=== PATIENT | female | born 1960 | race Caucasian/White ===

== ENCOUNTER 2024-08-28 12:11 | Emergency (ER) | payer OTHER, SELFPAY ==
[2024-08-28 12:17] VITALS: BP 168/85
[2024-08-28 12:42] LABS: % Basophils 0.4 % (0-2); % Eosinophils 3.1 % (0-6); % Immature Granulocytes 1.3 % (0-0.5); % Lymphocytes 16.5 % (20.5-51.1); % Monocytes 8.9 % (1.7-9.3); % Neutrophils 69.8 % (42.2-75.2); Absolute Eosinophils 0.3 10^3/uL (0-0.7); Absolute Immature Granulocytes 0.1 10^3/uL (0-0.05); Absolute Lymphocytes 1.7 10^3/uL (1.2-3.4); Absolute Monocytes 0.9 10^3/uL (0.1-0.6); Absolute Neutrophils 7.3 10^3/uL (1.4-6.5); Hematocrit 34.1 % (37.0-47.0); Hemoglobin 11.3 g/dL (12.0-16.0); Mean Corp Hgb Conc. 33.1 g/dL (33.0-37.0); Mean Corpuscular Hgb 27.2 pg (27.0-31.0); Mean Corpuscular Volume 82.2 fL (81.0-99.0); Mean Platelet Volume 9.3 fL (7.4-10.4); Nucleated Red Blood Cells % 0 %; Platelet Count 352 10^3/uL (130-400); Red Blood Cell Count 4.15 10^6/uL (4.20-5.40); Red Cell Dist. Width 13.3 % (11.5-14.5); White Blood Cell Count 10.5 10^3/uL (4.8-10.8)
[2024-08-28 13:06] LABS: ALT (SGPT) 30 U/L (0-35); AST (SGOT) 30 U/L (14-36); Albumin 4.2 g/dl (3.5-5.0); Alkaline Phosphatase 102 U/L (38-126); Blood Urea Nitrogen 11 mg/dl (7-17); Calcium 10.2 mg/dl (8.4-10.2); Carbon Dioxide 29 mmol/L (22-30); Chloride 102 mmol/L (98-107); Glucose 156 mg/dl (70-99); Potassium 4.1 mmol/L (3.5-5.1); Sodium 140 mmol/L (135-145); Total Bilirubin 0.6 mg/dl (0.2-1.3); Total Protein 7.3 g/dl (6.3-8.2); eGFR > 60.00
--- NOTE | 2024-08-28 13:47 | EDRN ---
Pt's family member came to triage desk, states pt cannot wait, she will get a DVT, and threatened this RN with a lawsuit. There are no stretchers available other than one pt and spouse pointed out that is by from door for critical/ CPR. Set pt up
with a recliner where leg can be extended in WR.
--- NOTE | 2024-08-28 16:13 | ED.GENMED ---
History of Present Illness
General
Chief Complaint: Post Operative Problem(s)
Source: patient
Exam Limitations: none
Time Seen by Provider: 08/28/24 15:47
History of Present Illness
History of Present Illness:
64-year-old female mostly complaining of recurrent sores in her mouth. Had her knee replaced 5 days ago. She noted a bump on her tongue that was painful actually 1 day prior to surgery. Symptoms have progressed since then. Some intermittent
low-grade fevers. She notes her knee is doing well. She has no other mucous membrane issues denying eye pain nasal pain vaginal or rectal pain. No unusual discharge. No chest pain or shortness of breath. Mostly very frustrated and uncomfortable
with her mouth sores
Past History
Past History
ED Past Medical History: Cancer (Thyroid), HTN, Hypercholesterolemia, Psychiatric and Other (Sjogren syndrome. Cerebral meningioma)
ED Past Surgical History: Orthopedic
Review of Systems
Review of Systems
All Other Systems: Not applicable
Respiratory: Reports no symptoms
Cardiac: Reports no symptoms
Phy Exam
Physical Exam
Physical Exam:
GENERAL: Alert and oriented in no apparent distress
EYE: Orbits normal.
NECK: Supple, no significant adenopathy.
ENT: Pharynx without erythema. Aphthous ulcers under the tongue along the buccal mucosa. No white patches. Posterior pharynx normal. Speech normal.
LUNGS: No respiratory distress
NEUROLOGICAL: Alert and oriented , grossly non-focal
SKIN: Warm and dry, ecchymosis to the right lower leg with mild swelling. Large dressing placed over the right knee. No erythema no drainage no point tenderness. Good distal pulses and color.
MUSCULOSKELETAL: No edema,no deformity.Good color
PSYCH: Normal and appropriate interaction. Yeah if
Course
Orders/Labs/Results
Orders:
Orders
08/28/24 12:30
CMP [Comprehensive Metabolic Panel] Urgent
Complete Blood Count/With Diff Urgent
08/28/24 16:13
US Periph Venous LOWER Ext RT Urgent
Comment:
Reason For Exam: Right leg swelling postop knee replacement
Abnormal Lab Results
08/28/24
12:30
RBC 4.15 L 10^6/uL
(4.20-5.40)
Hgb 11.3 L g/dL
(12.0-16.0)
Hct 34.1 L %
(37.0-47.0)
Abs Immat Gran (auto) 0.1 H 10^3/uL
(0-0.05)
Absolute Neuts (auto) 7.3 H 10^3/uL
(1.4-6.5)
Absolute Monos (auto) 0.9 H 10^3/uL
(0.1-0.6)
Immature Gran % 1.3 H %
(0-0.5)
Lymphocytes % 16.5 L %
(20.5-51.1)
Glucose 156 H mg/dl
(70-99)
08/28/24 12:30
08/28/24 12:30
Vital Signs
Initial and Last Documented VS:
Initial Vital Signs
Temp Pulse Resp BP Pulse Ox
98.6 F 72 18 168/85 98
08/28/24 12:17 08/28/24 12:17 08/28/24 12:17 08/28/24 12:17 08/28/24 12:17
Last Documented Vital Signs
Temp Pulse Resp BP Pulse Ox
98.1 F 68 18 143/81 100
08/28/24 17:45 08/28/24 17:45 08/28/24 17:45 08/28/24 17:45 08/28/24 17:45
MDM/Problems Addressed
Differential Diagnosis Includes:
I do not feel there is an acute knee issue. The knee appears well. It feels well for the patient. I doubt her low-grade fevers are related to any infection. I think the low-grade fevers are more likely related to her oral gingivostomatitis.
This appears to have started prior to her surgery. Likely not medication related. 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 She has no other rash petechia purpura. No other mucous membrane involvement. I do not feel culturing these would be
of any benefit. I do not feel this is thrush. Reasonable to start antivirals which her primary physician has prescribed. Labs are stable.
*Radiology
Radiology exam reviewed: radiology read reviewed (Negative ultrasound)
*Pulse Oximetry
Patient hypoxic: no (100%)
*Critical Care Note
Total Time (30-74mins, 75-104mins- exclusive of procedures): Not Applicable
Update Note
Update Note:
Again I do not feel that the knee is infected or is causing her low-grade fever. I feels the gingivostomatitis. In the support of Hamilton-Manuel syndrome. She will take the antiviral medication and follow-up.
ED Attending Note
-
Portions of this chart may have been created with voice recognition software.� Occasional wrong word or��sound alike� substitutions may have occurred due to the inherent limitations of voice recognition software.
Discharge Plan
Departure
Patient Disposition: Home (Routine Discharge)
Date of Disposition: 08/28/24
Time of Disposition: 17:53
Patient with high blood pressure during this ER visit?: Yes
Discharge Problem:
Gingivostomatitis, Recent knee replacement
Instructions: BLOOD PRESSURE
Referrals:
Gena Sage,Kory Morin MD [Family Provider, Family Practice] - Follow up in 2-3 days
Activity Restrictions/Additional Instructions:
Salt water gargles
Take the antiviral medication your physician prescribed
Return with any issues as we discussed including other mucous membrane involvement rash fever increased difficulty swallowing or any other concerning symptoms.
Also call your orthopedist for close follow-up just to recheck the knee. Of course get checked sooner with increasing pain swelling redness fever or any other concerning symptoms
Interventions
Interventions:
*Risk Screen - Suicide Last Done: 08/28/24 12:17
*General Assessment Last Done: 08/28/24 12:17
*Neglect/Abuse Screening Last Done: 08/28/24 12:17
*ED- Fall Risk Assessment Last Done: 08/28/24 12:17
*ED COVID-19 Vaccine History Last Done: 08/28/24 12:17
*Nursing Disposition Last Done: 08/28/24 18:16
ED-Skin Assessment Last Done: 08/28/24 17:45
Discharge Date and Time
Discharge Date/Time: 08/28/24 18:05
Print Language: [place]IZ[place]
[2024-08-28 17:45] VITALS: BP 143/81
== END 2024-08-28 18:05 | disposition home or self-care (01) ==
LOC: EMR 12:11
PROVIDERS: Emergency Medicine; EMERGENCY PHYSICIAN Emergency Medicine; FAMILY PHYSICIAN Family Medicine
DX: K05.10 Chronic gingivitis, plaque induced (principal); R22.41 Localized swelling, mass and lump, right lower limb; I10 Essential (primary) hypertension; E78.00 Pure hypercholesterolemia, unspecified; Z96.651 Presence of right artificial knee joint
CPT/HCPCS: 99284; 80053; 85025; 93971